=== PATIENT | male | born 2000 | race Caucasian/White ===

== ENCOUNTER 2021-11-04 21:30 | Emergency (ER) | payer OTHER ==
[~2021-11-04] VITALS: Ht 185.4 cm; Wt 106.8 kg
[2021-11-04 21:35] VITALS: BP 175/84; PULSE 126; TEMP 97.2
== END 2021-11-04 22:00 | disposition home or self-care (01) ==
LOC: COL.ER 21:30
DX: S84.92XA Injury of unspecified nerve at lower leg level, left leg, initial encounter (principal); F17.200 Nicotine dependence, unspecified, uncomplicated; X50.0XXA Overexertion from strenuous movement or load, initial encounter; Y92.69 Other specified industrial and construction area as the place of occurrence of the external cause; Y99.0 Civilian activity done for income or pay